=== PATIENT | male | born 1975 | race Caucasian/White ===

== ENCOUNTER 2020-04-10 04:48 | Observation (INO) ==
[2020-04-10] MEDS ORDERED: 0.9 % Sodium Chloride 1,000 ML IVC ONE (09:44)
[2020-04-10] MEDS ORDERED: D5% in 0.45% NACL 1,000 ML IVC PRN (09:58)
[2020-04-10] MEDS ORDERED: *HR* Dextrose 50 % in Water (Vial) 50 ML VIAL IVP PRN ×2 (09:58→15:47)
[2020-04-10] MEDS ORDERED: D5% in 0.45% NACL w KCl 20 MEQ/1,000 ML MLS IVC PRN (09:58)
[2020-04-10] MEDS ORDERED: Insulin Human Regular 100 UNIT in 0.9 % Sodium Chloride 100 ML IVC SCH ×3 (10:00→12:05)
[2020-04-10] MEDS: Ondansetron 4 MG/2 ML VIAL IVP PRN ×2 (10:35→20:12)
[2020-04-10] MEDS: Pantoprazole 40 MG VIAL IVP SCH (10:35)
[2020-04-10 10:53] LABS: Basophils % 0.2 %; Hematocrit 47.2 % (37.5-50.1); Hemoglobin 15.1 g/dL (12.9-16.9); Immature Granulocytes % 0.3 % (0-4); Lymphocytes # 1.6 K/mcL (0.6-4.6); Lymphocytes % 14.6 %; Mean Corpuscular Hemoglobin 25.8 pg (28.0-33.3); Mean Corpuscular Volume 80.7 fL (83.0-100.0); Mean Platelet Volume 10.3 fL (9.4-12.4); Monocytes # 1.2 K/mcL (0.0-1.3); Monocytes % 11.2 %; Neutrophils # 7.9 K/mcL (1.6-8.9); Platelet Count 287 K/mcL (140-400); Red Blood Count 5.85 M/mcL (4.19-5.50); Red Cell Distribution Width 13.4 % (11.5-14.5); Segmented Neutrophils % 73.7 %; White Blood Count 10.7 K/mcL (4.3-11.1)
[2020-04-10] MEDS: 0.45 % Sodium Chloride w/KCl 20 MEQ/1,000 ML MLS IVC SCH ×5 (11:14→15:18)
[2020-04-10 11:15] LABS: Estimated Average Glucose 358 mg/dl; Hemoglobin A1C 14.1 %
[2020-04-10 11:23] LABS: Troponin I < 0.03 ng/mL (< 0.04)
[2020-04-10 11:24] LABS: Alanine Aminotransferase 8 Units/L (7-52); Albumin 3.8 g/dL (3.5-5.7); Albumin/Globulin Ratio 1.1 (1.1-2.2); Alkaline Phosphatase 79 Units/L (34-104); Aspartate Amino Transferase 7 Units/L (13-39); BUN/Creatinine Ratio 29 (6-26); Bilirubin,Total 0.2 mg/dL (0.3-1.0); Blood Urea Nitrogen 36 mg/dL (6-20); Calcium 8.3 mg/dL (8.6-10.3); Carbon Dioxide 30 mEq/L (23-29); Chloride 104 mEq/L (98-107); Globulin 3.4 g/dL (2.4-3.5); Glucose 229 mg/dL (70-105); Lipase 10 Units/L (11-82); Magnesium 2.5 mg/dL (1.6-2.6); Osmolality,Calculated 318 (280-300); Potassium 3.2 mEq/L (3.5-5.1); Sodium 146 mEq/L (136-145); Total Protein 7.2 g/dL (6.4-8.9); eGFR For African Americans > 60 (> 60); eGFR For Non-African Americans > 60 (> 60)
[2020-04-10 15:30] LABS: BUN/Creatinine Ratio 28 (6-26); Blood Urea Nitrogen 31 mg/dL (6-20); Calcium 8.1 mg/dL (8.6-10.3); Carbon Dioxide 28 mEq/L (23-29); Chloride 106 mEq/L (98-107); Glucose 219 mg/dL (70-105); Osmolality,Calculated 311 (280-300); Potassium 3.7 mEq/L (3.5-5.1); Sodium 144 mEq/L (136-145); eGFR For African Americans > 60 (> 60); eGFR For Non-African Americans > 60 (> 60)
[2020-04-10] MEDS ORDERED: Insulin DETEMIR 100 UNIT/ML X5UNITS SQ ONE (15:47)
[2020-04-10] MEDS: 0.9 % Sodium Chloride 1,000 ML IVC SCH (16:26)
[2020-04-10] MEDS: Insulin LISPRO 300 UNITS/3 ML VIAL SQ SCH ×2 (16:47→20:09)
[2020-04-10] MEDS: *HR* Heparin 5,000 UNIT/ML VIAL SQ SCH (17:39)
[2020-04-10] MEDS: Insulin DETEMIR 100 UNIT/ML X5UNITS SQ SCH (20:12)
[2020-04-11] MEDS: 0.9 % Sodium Chloride 1,000 ML IVC SCH (01:58)
[2020-04-11] MEDS: Ondansetron 4 MG/2 ML VIAL IVP PRN ×3 (03:52→20:59)
[2020-04-11] MEDS: *HR* Heparin 5,000 UNIT/ML VIAL SQ SCH ×2 (05:30→18:05)
[2020-04-11] MEDS: Pantoprazole 40 MG VIAL IVP SCH (08:14)
[2020-04-11] MEDS: Insulin LISPRO 300 UNITS/3 ML VIAL SQ SCH ×4 (08:15→20:54)
[2020-04-11] MEDS: Insulin DETEMIR 100 UNIT/ML X5UNITS SQ SCH ×2 (08:16→21:00)
[2020-04-11 08:19] LABS: BUN/Creatinine Ratio 19 (6-26); Blood Urea Nitrogen 16 mg/dL (6-20); Calcium 7.9 mg/dL (8.6-10.3); Carbon Dioxide 26 mEq/L (23-29); Chloride 110 mEq/L (98-107); Glucose 192 mg/dL (70-105); Osmolality,Calculated 306 (280-300); Potassium 3.8 mEq/L (3.5-5.1); Sodium 145 mEq/L (136-145); eGFR For African Americans > 60 (> 60); eGFR For Non-African Americans > 60 (> 60)
[2020-04-11 09:19] LABS: Amphetamine Screen,Urine Negative ng/mL (Cutoff=1000); Barbiturate Screen,Urine Negative ng/mL (Cutoff=200); Benzodiazepines Screen,Urine Negative ng/mL (Cutoff=200); Cannabinoid Screen,Urine Negative ng/mL (Cutoff = 50); Cocaine Screen,Urine Negative ng/mL (Cutoff= 300); Opiate Screen,Urine Negative ng/mL (Cutoff=300); Phencyclidine Screen,Urine Negative ng/mL (Cutoff=25)
[2020-04-11] MEDS ORDERED: Potassium Phosphate 44 MEQ in 0.9 % Sodium Chloride 250 ML IVPB ONE (10:33)
[2020-04-12] MEDS: *HR* Heparin 5,000 UNIT/ML VIAL SQ SCH ×2 (04:58→16:46)
[2020-04-12] MEDS: Insulin DETEMIR 100 UNIT/ML X5UNITS SQ SCH (09:00)
[2020-04-12] MEDS: Pantoprazole 40 MG VIAL IVP SCH (09:01)
[2020-04-12] MEDS: Insulin LISPRO 300 UNITS/3 ML VIAL SQ SCH ×3 (09:01→16:46)
[2020-04-12 15:23] VITALS: BP 137/79
== END 2020-04-12 19:41 | disposition home or self-care (01) ==
LOC: 2NNU → SUATTDRO 09:04 → 3ANU 04-12 06:25
PROVIDERS: ADMIT Internal Medicine; ATTEND Internal Medicine

== ENCOUNTER 2020-05-02 00:17 | Observation (INO) ==
[2020-05-02] MEDS ORDERED: Naloxone 0.4 MG/ML INJ IVP PRN (02:14)
[2020-05-02] MEDS ORDERED: 0.9 % Sodium Chloride 1,000 ML IVC SCH (02:15)
[2020-05-02] MEDS ORDERED: D5% in Water 1,000 ML IVC PRN (02:19)
[2020-05-02] MEDS ORDERED: *HR* Dextrose 50 % in Water (Vial) 50 ML VIAL IVP PRN (02:19)
[2020-05-02] MEDS ORDERED: Dextrose Gel 15 GM/37.5 ML TUBE PO PRN ×2 (02:19)
[2020-05-02] MEDS: Insulin LISPRO 300 UNITS/3 ML VIAL SQ SCH ×5 (02:39→20:43)
[2020-05-02 03:32] LABS: Basophils % 0.1 %; Eosinophils % 0.1 %; Hematocrit 39.5 % (37.5-50.1); Hemoglobin 12.3 g/dL (12.9-16.9); INR 1.3; Immature Granulocytes % 0.2 % (0-4); Lymphocytes # 2.3 K/mcL (0.6-4.6); Lymphocytes % 27.8 %; Mean Corpuscular HGB Conc 31.1 g/dL (31.6-35.5); Mean Corpuscular Hemoglobin 25.5 pg (28.0-33.3); Mean Platelet Volume 9.7 fL (9.4-12.4); Monocytes # 0.7 K/mcL (0.0-1.3); Neutrophils # 5.1 K/mcL (1.6-8.9); Platelet Count 315 K/mcL (140-400); Prothrombin Time 14.9 Seconds (9.4-12.1); Red Blood Count 4.82 M/mcL (4.19-5.50); Red Cell Distribution Width 13.5 % (11.5-14.5); Segmented Neutrophils % 62.8 %; White Blood Count 8.2 K/mcL (4.3-11.1)
[2020-05-02 03:35] LABS: Activated Partial Thrombo Time 30.2 Seconds (26.0-36.0)
[2020-05-02 03:45] LABS: VBG Base Excess 6 mEq/L; VBG Chloride 111 mEq/L (98-107); VBG HCO3 31 mEq/L (21-27); VBG Ionized Calcium 1.05 mmol/L (1.15-1.35); VBG Oxygen Saturation 98 %; VBG PCO2 46 mmHg (41-51); VBG PH 7.44 pH Units (7.32-7.42); VBG PO2 102 mmHg (25-50); VBG Total CO2 32 mEq/L
[2020-05-02 03:55] LABS: Alanine Aminotransferase 8 Units/L (7-52); Albumin 3.4 g/dL (3.5-5.7); Albumin/Globulin Ratio 1.2 (1.1-2.2); Alkaline Phosphatase 55 Units/L (34-104); Aspartate Amino Transferase 7 Units/L (13-39); BUN/Creatinine Ratio 30 (6-26); Bilirubin,Total 0.2 mg/dL (0.3-1.0); Blood Urea Nitrogen 22 mg/dL (6-20); Calcium 8.3 mg/dL (8.6-10.3); Carbon Dioxide 29 mEq/L (23-29); Chloride 110 mEq/L (98-107); Globulin 2.9 g/dL (2.4-3.5); Glucose 134 mg/dL (70-105); Magnesium 1.8 mg/dL (1.6-2.6); Osmolality,Calculated 313 (280-300); Phosphorous 2.7 mg/dL (2.7-4.5); Potassium 3.3 mEq/L (3.5-5.1); Sodium 149 mEq/L (136-145); Total Protein 6.3 g/dL (6.4-8.9); eGFR For African Americans > 60 (> 60); eGFR For Non-African Americans > 60 (> 60)
[2020-05-02] MEDS ORDERED: Potassium Chloride 40 MEQ in D5% in 0.45% NACL 1,000 ML IVC SCH (04:30)
[2020-05-02 04:32] LABS: Procalcitonin < 0.02 ng/mL (0.00-0.15)
[2020-05-02 07:15] LABS: BUN/Creatinine Ratio 31 (6-26); Blood Urea Nitrogen 22 mg/dL (6-20); Calcium 8.1 mg/dL (8.6-10.3); Carbon Dioxide 32 mEq/L (23-29); Chloride 110 mEq/L (98-107); Glucose 135 mg/dL (70-105); Osmolality,Calculated 311 (280-300); Potassium 3.3 mEq/L (3.5-5.1); Sodium 148 mEq/L (136-145); eGFR For African Americans > 60 (> 60); eGFR For Non-African Americans > 60 (> 60)
[2020-05-02 07:43] LABS: HIV-1&2 Antibody & p24 Ag Nonreactive (Nonreactive)
[2020-05-02] MEDS ORDERED: D5% in Water 1,000 ML IVC SCH (07:45)
[2020-05-02] MEDS ORDERED: Insulin LISPRO 300 UNITS/3 ML VIAL SQ SCH (08:00)
[2020-05-02 08:05] LABS: Estimated Average Glucose 324 mg/dl
[2020-05-02] MEDS: Pantoprazole 40 MG VIAL IVP SCH (08:31)
[2020-05-02] MEDS: Ondansetron 4 MG/2 ML VIAL IVP PRN ×2 (08:38→20:32)
[2020-05-02 11:54] LABS: BUN/Creatinine Ratio 29 (6-26); Blood Urea Nitrogen 19 mg/dL (6-20); Calcium 7.7 mg/dL (8.6-10.3); Carbon Dioxide 26 mEq/L (23-29); Chloride 109 mEq/L (98-107); Glucose 211 mg/dL (70-105); Osmolality,Calculated 305 (280-300); Potassium 3.8 mEq/L (3.5-5.1); Sodium 143 mEq/L (136-145); eGFR For African Americans > 60 (> 60); eGFR For Non-African Americans > 60 (> 60)
[2020-05-02] MEDS: *HR* Heparin 5,000 UNIT/ML VIAL SQ SCH ×2 (14:32→20:26)
[2020-05-02 14:33] LABS: BUN/Creatinine Ratio 25 (6-26); Blood Urea Nitrogen 17 mg/dL (6-20); Calcium 7.7 mg/dL (8.6-10.3); Carbon Dioxide 27 mEq/L (23-29); Chloride 105 mEq/L (98-107); Glucose 285 mg/dL (70-105); Osmolality,Calculated 298 (280-300); Potassium 3.7 mEq/L (3.5-5.1); Sodium 138 mEq/L (136-145); eGFR For African Americans > 60 (> 60); eGFR For Non-African Americans > 60 (> 60)
[2020-05-02] MEDS: Magic Mouthwash 10 ML UD Cup PO SCH (17:19)
[2020-05-02] MEDS: Sucralfate 1 GM TABLET PO SCH (17:19)
[2020-05-02 18:39] LABS: BUN/Creatinine Ratio 19 (6-26); Blood Urea Nitrogen 14 mg/dL (6-20); Calcium 7.6 mg/dL (8.6-10.3); Carbon Dioxide 27 mEq/L (23-29); Chloride 102 mEq/L (98-107); Glucose 243 mg/dL (70-105); Osmolality,Calculated 293 (280-300); Potassium 3.8 mEq/L (3.5-5.1); Sodium 137 mEq/L (136-145); eGFR For African Americans > 60 (> 60); eGFR For Non-African Americans > 60 (> 60)
[2020-05-02] MEDS: Insulin DETEMIR 100 UNIT/ML X5UNITS SQ SCH (20:26)
[2020-05-02 23:24] LABS: BUN/Creatinine Ratio 15 (6-26); Blood Urea Nitrogen 11 mg/dL (6-20); Calcium 7.5 mg/dL (8.6-10.3); Carbon Dioxide 25 mEq/L (23-29); Chloride 103 mEq/L (98-107); Glucose 212 mg/dL (70-105); Osmolality,Calculated 286 (280-300); Potassium 3.6 mEq/L (3.5-5.1); Sodium 135 mEq/L (136-145); eGFR For African Americans > 60 (> 60); eGFR For Non-African Americans > 60 (> 60)
[2020-05-03] MEDS: Insulin LISPRO 300 UNITS/3 ML VIAL SQ SCH ×7 (00:08→20:43)
[2020-05-03 03:23] LABS: Basophils % 0.5 %; Eosinophils # 0.1 K/mcL (0.0-0.6); Eosinophils % 1.2 %; Hematocrit 33.9 % (37.5-50.1); Hemoglobin 10.8 g/dL (12.9-16.9); Immature Granulocytes % 0.2 % (0-4); Lymphocytes # 2.9 K/mcL (0.6-4.6); Lymphocytes % 44.2 %; Mean Corpuscular HGB Conc 31.9 g/dL (31.6-35.5); Mean Corpuscular Hemoglobin 26.2 pg (28.0-33.3); Mean Corpuscular Volume 82.3 fL (83.0-100.0); Mean Platelet Volume 9.5 fL (9.4-12.4); Monocytes # 0.5 K/mcL (0.0-1.3); Monocytes % 7.3 %; Neutrophils # 3.1 K/mcL (1.6-8.9); Platelet Count 215 K/mcL (140-400); Red Blood Count 4.12 M/mcL (4.19-5.50); Red Cell Distribution Width 13.3 % (11.5-14.5); Segmented Neutrophils % 46.6 %; White Blood Count 6.6 K/mcL (4.3-11.1)
[2020-05-03 03:38] LABS: BUN/Creatinine Ratio 13 (6-26); Blood Urea Nitrogen 10 mg/dL (6-20); Calcium 7.8 mg/dL (8.6-10.3); Carbon Dioxide 29 mEq/L (23-29); Chloride 103 mEq/L (98-107); Glucose 222 mg/dL (70-105); Magnesium 1.7 mg/dL (1.6-2.6); Osmolality,Calculated 288 (280-300); Potassium 3.4 mEq/L (3.5-5.1); Sodium 136 mEq/L (136-145); eGFR For African Americans > 60 (> 60); eGFR For Non-African Americans > 60 (> 60)
[2020-05-03] MEDS: *HR* Heparin 5,000 UNIT/ML VIAL SQ SCH ×3 (05:12→20:42)
[2020-05-03] MEDS: Sucralfate 1 GM TABLET PO SCH ×3 (08:02→17:04)
[2020-05-03] MEDS: Pantoprazole 40 MG VIAL IVP SCH (08:03)
[2020-05-03] MEDS: Magic Mouthwash 10 ML UD Cup PO SCH ×3 (08:03→17:04)
[2020-05-03] MEDS ORDERED: *HR* Succinylcholine 200 MG/10 ML VIAL IVP ONE (08:59)
[2020-05-03] MEDS ORDERED: Lidocaine -MPF 2% 2 ML VIAL ONE (08:59)
[2020-05-03] MEDS ORDERED: *HR* Propofol 200 MG/20 ML VIAL IVP ONE ×2 (09:00→11:01)
[2020-05-03 09:31] LABS: Hematocrit 37.5 % (37.5-50.1); Hemoglobin 11.6 g/dL (12.9-16.9)
[2020-05-03 10:17] LABS: Triiodothyronine (T3) Free 3.05 pg/mL (2.50-3.90)
[2020-05-03] MEDS: Fluconazole 400 MG/200 ML 400 MG/200 ML BAG IVPB SCH (11:58)
[2020-05-03 14:06] LABS: Hematocrit 35.1 % (37.5-50.1)
[2020-05-03] MEDS: Insulin DETEMIR 100 UNIT/ML X5UNITS SQ SCH (20:43)
[2020-05-04 06:04] LABS: Basophils % 0.4 %; Eosinophils # 0.1 K/mcL (0.0-0.6); Eosinophils % 1.1 %; Hematocrit 33.7 % (37.5-50.1); Hemoglobin 10.7 g/dL (12.9-16.9); Immature Granulocytes % 0.2 % (0-4); Mean Corpuscular HGB Conc 31.8 g/dL (31.6-35.5); Mean Corpuscular Hemoglobin 25.1 pg (28.0-33.3); Mean Corpuscular Volume 78.9 fL (83.0-100.0); Mean Platelet Volume 9.3 fL (9.4-12.4); Monocytes # 0.4 K/mcL (0.0-1.3); Monocytes % 8.7 %; Neutrophils # 2.2 K/mcL (1.6-8.9); Platelet Count 215 K/mcL (140-400); Red Blood Count 4.27 M/mcL (4.19-5.50); Red Cell Distribution Width 13.2 % (11.5-14.5); Segmented Neutrophils % 46.6 %; White Blood Count 4.7 K/mcL (4.3-11.1)
[2020-05-04] MEDS: *HR* Heparin 5,000 UNIT/ML VIAL SQ SCH (06:10)
[2020-05-04 06:24] LABS: BUN/Creatinine Ratio 12 (6-26); Blood Urea Nitrogen 10 mg/dL (6-20); Calcium 8.5 mg/dL (8.6-10.3); Carbon Dioxide 27 mEq/L (23-29); Chloride 105 mEq/L (98-107); Glucose 211 mg/dL (70-105); Magnesium 1.8 mg/dL (1.6-2.6); Osmolality,Calculated 291 (280-300); Potassium 3.6 mEq/L (3.5-5.1); Sodium 138 mEq/L (136-145); eGFR For African Americans > 60 (> 60); eGFR For Non-African Americans > 60 (> 60)
[2020-05-04 06:41] VITALS: BP 165/93
[2020-05-04] MEDS: Sucralfate 1 GM TABLET PO SCH (07:32)
[2020-05-04] MEDS: Fluconazole 400 MG/200 ML 400 MG/200 ML BAG IVPB SCH (07:32)
[2020-05-04] MEDS: Pantoprazole 40 MG VIAL IVP SCH (07:33)
[2020-05-04] MEDS: Insulin LISPRO 300 UNITS/3 ML VIAL SQ SCH (07:47)
== END 2020-05-04 11:10 | disposition home or self-care (01) ==
LOC: 2ANU → SUATTDRO 02:07
PROVIDERS: ADMIT Student in an Organized Health Care Education/Training Program; ATTEND Pharmacist
PROC: ENDOEBX (2020-05-03 17:30)

== ENCOUNTER 2020-05-16 21:06 | Inpatient (IN) ==
[2020-05-16] MEDS ORDERED: Insulin Human Regular 100 UNIT in 0.9 % Sodium Chloride 100 ML IVC SCH (23:45)
[2020-05-16] MEDS ORDERED: Naloxone 0.4 MG/ML INJ IVP PRN (23:53)
[2020-05-16] MEDS ORDERED: *HR* Dextrose 50 % in Water (Vial) 50 ML VIAL IVP PRN (23:56)
[2020-05-16] MEDS ORDERED: D5% in 0.45% NACL w KCl 20 MEQ/1,000 ML MLS IVC PRN (23:56)
[2020-05-16] MEDS ORDERED: D5% in 0.45% NACL 1,000 ML IVC PRN (23:56)
[2020-05-17] MEDS: Ondansetron 4 MG/2 ML VIAL IVP PRN ×2 (00:19→12:06)
[2020-05-17] MEDS: 0.45 % Sodium Chloride w/KCl 20 MEQ/1,000 ML MLS IVC SCH ×5 (00:20→18:01)
[2020-05-17] MEDS ORDERED: Isovue-370 500 ML BOTTLE IVP ONE (00:30)
[2020-05-17 01:29] LABS: Adenovirus Not Detected (Not Detect); Coronavirus 229E Not Detected (Not Detect); Coronavirus HKU1 Not Detected (Not Detect); Coronavirus NL63 Not Detected (Not Detect); Coronavirus OC43 Not Detected (Not Detect)
[2020-05-17 01:31] LABS: Bordetella Pertussis Not Detected (Not Detect); Chlamydophila pneumoniae Not Detected (Not Detect); Human Metapneumovirus Not Detected (Not Detect); Human Rhinovirus/Enterovirus Not Detected (Not Detect); Influenza A Subtype 2009 H1 Not Detected (Not Detect); Influenza B Not Detected (Not Detect); Mycoplasma pneumoniae Not Detected (Not Detect); Parainfluenza Virus 1 Not Detected (Not Detect); Parainfluenza Virus 2 Not Detected (Not Detect); Parainfluenza Virus 3 Not Detected (Not Detect); Parainfluenza Virus 4 Not Detected (Not Detect); Respiratory Syncytial Virus Not Detected (Not Detect)
[2020-05-17] MEDS: *HR* Enoxaparin 40 MG/0.4 ML SYRINGE SQ SCH (04:44)
[2020-05-17 05:03] LABS: BUN/Creatinine Ratio 30 (6-26); Blood Urea Nitrogen 31 mg/dL (6-20); C-Reactive Protein 215 mg/L (Less than 10); Calcium 8.7 mg/dL (8.6-10.3); Carbon Dioxide 25 mEq/L (23-29); Chloride 100 mEq/L (98-107); Glucose 158 mg/dL (70-105); Magnesium 2.2 mg/dL (1.6-2.6); Osmolality,Calculated 302 (280-300); Phosphorous 2.3 mg/dL (2.7-4.5); Potassium 3.9 mEq/L (3.5-5.1); Sodium 141 mEq/L (136-145); eGFR For African Americans > 60 (> 60); eGFR For Non-African Americans > 60 (> 60)
[2020-05-17 05:03] LABS: Basophils % 0.2 %; Eosinophils % 0.1 %; Hematocrit 43.6 % (37.5-50.1); Hemoglobin 13.7 g/dL (12.9-16.9); Immature Granulocytes % 0.4 % (0-4); Lymphocytes # 2.6 K/mcL (0.6-4.6); Lymphocytes % 17.2 %; Mean Corpuscular HGB Conc 31.4 g/dL (31.6-35.5); Mean Corpuscular Hemoglobin 25.2 pg (28.0-33.3); Mean Corpuscular Volume 80.3 fL (83.0-100.0); Mean Platelet Volume 9.7 fL (9.4-12.4); Monocytes # 1.1 K/mcL (0.0-1.3); Monocytes % 7.6 %; Neutrophils # 11.2 K/mcL (1.6-8.9); Platelet Count 321 K/mcL (140-400); Red Blood Count 5.43 M/mcL (4.19-5.50); Segmented Neutrophils % 74.5 %; White Blood Count 15.1 K/mcL (4.3-11.1)
[2020-05-17 05:04] LABS: VBG HCO3 28 mEq/L (21-27); VBG PCO2 41 mmHg (41-51); VBG PH 7.44 pH Units (7.32-7.42); VBG PO2 181 mmHg (25-50)
[2020-05-17] MEDS ORDERED: Insulin DETEMIR 100 UNIT/ML X5UNITS SQ ONE (07:42)
[2020-05-17 08:38] LABS: INR 1.3; Prothrombin Time 14.4 Seconds (9.4-12.1)
[2020-05-17 08:48] LABS: BUN/Creatinine Ratio 29 (6-26); Blood Urea Nitrogen 29 mg/dL (6-20); Calcium 8.4 mg/dL (8.6-10.3); Carbon Dioxide 30 mEq/L (23-29); Chloride 101 mEq/L (98-107); Glucose 112 mg/dL (70-105); Osmolality,Calculated 293 (280-300); Potassium 3.6 mEq/L (3.5-5.1); Sodium 138 mEq/L (136-145); eGFR For African Americans > 60 (> 60); eGFR For Non-African Americans > 60 (> 60)
[2020-05-17] MEDS ORDERED: Dextrose Gel 15 GM/37.5 ML TUBE PO PRN ×2 (11:57)
[2020-05-17] MEDS ORDERED: D5% in Water 1,000 ML IVC PRN (11:57)
[2020-05-17] MEDS ORDERED: Insulin LISPRO 300 UNITS/3 ML VIAL SQ SCH ×2 (12:00→21:00)
[2020-05-17] MEDS: Pantoprazole 40 MG VIAL IVP SCH ×2 (12:44→17:22)
[2020-05-17] MEDS: 0.9 % Sodium Chloride w KCl 40 MEQ/1,000 ML MLS IVC SCH (12:44)
[2020-05-17] MEDS ORDERED: Lidocaine -MPF 2% 2 ML VIAL ONE (13:46)
[2020-05-17] MEDS: Sucralfate 1 GM TABLET PO SCH ×2 (15:42→20:25)
[2020-05-17] MEDS: Fluconazole 400 MG/200 ML 400 MG/200 ML BAG IVPB SCH (15:42)
[2020-05-17] MEDS: Insulin LISPRO 300 UNITS/3 ML VIAL SQ SCH (17:22)
[2020-05-18 02:25] LABS: Basophils % 0.3 %; Eosinophils # 0.1 K/mcL (0.0-0.6); Eosinophils % 0.6 %; Hematocrit 37.4 % (37.5-50.1); Immature Granulocytes % 0.3 % (0-4); Lymphocytes # 2.8 K/mcL (0.6-4.6); Lymphocytes % 27.9 %; Mean Corpuscular HGB Conc 32.1 g/dL (31.6-35.5); Mean Corpuscular Hemoglobin 26.3 pg (28.0-33.3); Mean Corpuscular Volume 81.8 fL (83.0-100.0); Mean Platelet Volume 9.6 fL (9.4-12.4); Monocytes # 0.7 K/mcL (0.0-1.3); Monocytes % 7.4 %; Neutrophils # 6.3 K/mcL (1.6-8.9); Platelet Count 267 K/mcL (140-400); Red Blood Count 4.57 M/mcL (4.19-5.50); Red Cell Distribution Width 13.9 % (11.5-14.5); Segmented Neutrophils % 63.5 %; White Blood Count 9.9 K/mcL (4.3-11.1)
[2020-05-18 02:43] LABS: BUN/Creatinine Ratio 18 (6-26); Blood Urea Nitrogen 16 mg/dL (6-20); Calcium 8.6 mg/dL (8.6-10.3); Carbon Dioxide 26 mEq/L (23-29); Chloride 100 mEq/L (98-107); Glucose 211 mg/dL (70-105); Magnesium 1.9 mg/dL (1.6-2.6); Osmolality,Calculated 285 (280-300); Potassium 3.9 mEq/L (3.5-5.1); Sodium 134 mEq/L (136-145); eGFR For African Americans > 60 (> 60); eGFR For Non-African Americans > 60 (> 60)
[2020-05-18] MEDS: 0.9 % Sodium Chloride w KCl 40 MEQ/1,000 ML MLS IVC SCH (05:24)
[2020-05-18] MEDS: Pantoprazole 40 MG VIAL IVP SCH ×2 (05:30→17:32)
[2020-05-18] MEDS: *HR* Enoxaparin 40 MG/0.4 ML SYRINGE SQ SCH (05:30)
[2020-05-18] MEDS: Sucralfate 1 GM TABLET PO SCH ×4 (07:40→21:39)
[2020-05-18] MEDS: Fluconazole 400 MG/200 ML 400 MG/200 ML BAG IVPB SCH (07:40)
[2020-05-18] MEDS: Insulin LISPRO 300 UNITS/3 ML VIAL SQ SCH ×3 (07:40→16:30)
[2020-05-18] MEDS: Insulin DETEMIR 100 UNIT/ML X5UNITS SQ SCH (22:28)
[2020-05-19 02:09] LABS: Basophils % 0.5 %; Eosinophils # 0.1 K/mcL (0.0-0.6); Eosinophils % 0.9 %; Hematocrit 34.5 % (37.5-50.1); Hemoglobin 11.1 g/dL (12.9-16.9); Lymphocytes # 2.2 K/mcL (0.6-4.6); Lymphocytes % 38.5 %; Mean Corpuscular HGB Conc 32.2 g/dL (31.6-35.5); Mean Corpuscular Hemoglobin 25.8 pg (28.0-33.3); Mean Platelet Volume 10.1 fL (9.4-12.4); Monocytes # 0.5 K/mcL (0.0-1.3); Monocytes % 8.4 %; Platelet Count 234 K/mcL (140-400); Red Blood Count 4.31 M/mcL (4.19-5.50); Red Cell Distribution Width 13.4 % (11.5-14.5); Segmented Neutrophils % 51.7 %; White Blood Count 5.8 K/mcL (4.3-11.1)
[2020-05-19 02:27] LABS: BUN/Creatinine Ratio 13 (6-26); Blood Urea Nitrogen 11 mg/dL (6-20); Calcium 8.3 mg/dL (8.6-10.3); Carbon Dioxide 26 mEq/L (23-29); Chloride 100 mEq/L (98-107); Glucose 270 mg/dL (70-105); Osmolality,Calculated 285 (280-300); Potassium 3.6 mEq/L (3.5-5.1); Sodium 133 mEq/L (136-145); eGFR For African Americans > 60 (> 60); eGFR For Non-African Americans > 60 (> 60)
[2020-05-19] MEDS: *HR* Enoxaparin 40 MG/0.4 ML SYRINGE SQ SCH (05:54)
[2020-05-19] MEDS: Pantoprazole 40 MG VIAL IVP SCH ×2 (05:54→17:00)
[2020-05-19] MEDS: Sucralfate 1 GM TABLET PO SCH ×4 (07:59→21:04)
[2020-05-19] MEDS: Fluconazole 400 MG/200 ML 400 MG/200 ML BAG IVPB SCH (07:59)
[2020-05-19] MEDS: Insulin LISPRO 300 UNITS/3 ML VIAL SQ SCH ×3 (08:00→17:00)
[2020-05-19] MEDS: Insulin DETEMIR 100 UNIT/ML X5UNITS SQ SCH (21:07)
[2020-05-20 02:57] LABS: Basophils % 0.6 %; Eosinophils # 0.1 K/mcL (0.0-0.6); Eosinophils % 1.5 %; Hematocrit 32.9 % (37.5-50.1); Hemoglobin 10.7 g/dL (12.9-16.9); Immature Granulocytes % 0.2 % (0-4); Lymphocytes # 2.4 K/mcL (0.6-4.6); Lymphocytes % 43.6 %; Mean Corpuscular HGB Conc 32.5 g/dL (31.6-35.5); Mean Corpuscular Hemoglobin 25.7 pg (28.0-33.3); Mean Corpuscular Volume 78.9 fL (83.0-100.0); Mean Platelet Volume 10.3 fL (9.4-12.4); Monocytes # 0.5 K/mcL (0.0-1.3); Monocytes % 8.9 %; Neutrophils # 2.4 K/mcL (1.6-8.9); Platelet Count 245 K/mcL (140-400); Red Blood Count 4.17 M/mcL (4.19-5.50); Red Cell Distribution Width 13.3 % (11.5-14.5); Segmented Neutrophils % 45.2 %; White Blood Count 5.4 K/mcL (4.3-11.1)
[2020-05-20 03:16] LABS: BUN/Creatinine Ratio 19 (6-26); Blood Urea Nitrogen 13 mg/dL (6-20); Calcium 8.7 mg/dL (8.6-10.3); Carbon Dioxide 26 mEq/L (23-29); Chloride 100 mEq/L (98-107); Glucose 305 mg/dL (70-105); Magnesium 1.6 mg/dL (1.6-2.6); Osmolality,Calculated 288 (280-300); Phosphorous 2.9 mg/dL (2.7-4.5); Potassium 3.7 mEq/L (3.5-5.1); Sodium 133 mEq/L (136-145); eGFR For African Americans > 60 (> 60); eGFR For Non-African Americans > 60 (> 60)
[2020-05-20] MEDS: Pantoprazole 40 MG VIAL IVP SCH (05:31)
[2020-05-20] MEDS: Fluconazole 400 MG/200 ML 400 MG/200 ML BAG IVPB SCH (10:36)
[2020-05-20] MEDS: Fluconazole 100 MG TABLET PO SCH (10:38)
[2020-05-20] MEDS: Insulin LISPRO 300 UNITS/3 ML VIAL SQ SCH ×3 (10:39→17:39)
[2020-05-20] MEDS: Sucralfate 1 GM TABLET PO SCH ×4 (10:39→22:24)
[2020-05-20] MEDS ORDERED: Insulin DETEMIR 100 UNIT/ML X5UNITS SQ SCH (21:00)
[2020-05-21 02:00] LABS: Basophils % 0.6 %; Eosinophils # 0.1 K/mcL (0.0-0.6); Eosinophils % 1.9 %; Hematocrit 34.1 % (37.5-50.1); Hemoglobin 10.9 g/dL (12.9-16.9); Immature Granulocytes % 0.2 % (0-4); Lymphocytes # 2.3 K/mcL (0.6-4.6); Lymphocytes % 44.7 %; Mean Corpuscular Hemoglobin 24.9 pg (28.0-33.3); Mean Platelet Volume 9.7 fL (9.4-12.4); Monocytes # 0.5 K/mcL (0.0-1.3); Monocytes % 8.8 %; Neutrophils # 2.3 K/mcL (1.6-8.9); Platelet Count 257 K/mcL (140-400); Red Blood Count 4.37 M/mcL (4.19-5.50); Red Cell Distribution Width 13.2 % (11.5-14.5); Segmented Neutrophils % 43.8 %; White Blood Count 5.2 K/mcL (4.3-11.1)
[2020-05-21 02:18] LABS: BUN/Creatinine Ratio 22 (6-26); Blood Urea Nitrogen 14 mg/dL (6-20); Calcium 9.1 mg/dL (8.6-10.3); Carbon Dioxide 24 mEq/L (23-29); Chloride 98 mEq/L (98-107); Glucose 339 mg/dL (70-105); Magnesium 1.6 mg/dL (1.6-2.6); Osmolality,Calculated 288 (280-300); Phosphorous 3.6 mg/dL (2.7-4.5); Potassium 3.8 mEq/L (3.5-5.1); Sodium 132 mEq/L (136-145); eGFR For African Americans > 60 (> 60); eGFR For Non-African Americans > 60 (> 60)
[2020-05-21] MEDS: Sucralfate 1 GM TABLET PO SCH ×2 (08:16→11:15)
[2020-05-21] MEDS: Fluconazole 100 MG TABLET PO SCH (08:17)
[2020-05-21] MEDS: Insulin LISPRO 300 UNITS/3 ML VIAL SQ SCH ×2 (08:21→11:19)
[2020-05-21 14:35] VITALS: BP 166/100
== END 2020-05-21 15:53 | disposition home or self-care (01) | DRG 380 ==
LOC: 2NNU → SUATTDRO 23:16 → 3ANU 05-18 17:46
PROVIDERS: ADMIT Internal Medicine; ATTEND Internal Medicine

== ENCOUNTER 2020-07-04 19:54 | Inpatient (IN) ==
[2020-07-04] MEDS ORDERED: Naloxone 0.4 MG/ML INJ IVP PRN (21:28)
[2020-07-04 22:52] LABS: ABG Base Excess -5 mEq/L (-2 to 3); ABG HCO3 19 mEq/L (21-27); ABG Oxygen Saturation 97 % (95-98); ABG PCO2 31 mmHg (35-45); ABG PH 7.39 pH Units (7.32-7.45); ABG PO2 94 mmHg (85-104); ABG TCO2 20 mEq/L (20-26)
[2020-07-04 23:03] LABS: Basophils % 0.1 %; Hematocrit 43.9 % (37.5-50.1); Hemoglobin 14.3 g/dL (12.9-16.9); Immature Granulocytes % 0.3 % (0-4); Lymphocytes # 1.8 K/mcL (0.6-4.6); Lymphocytes % 12.7 %; Mean Corpuscular HGB Conc 32.6 g/dL (31.6-35.5); Mean Corpuscular Hemoglobin 24.8 pg (28.0-33.3); Mean Corpuscular Volume 76.2 fL (83.0-100.0); Mean Platelet Volume 10.2 fL (9.4-12.4); Monocytes # 0.9 K/mcL (0.0-1.3); Monocytes % 6.5 %; Neutrophils # 11.6 K/mcL (1.6-8.9); Platelet Count 314 K/mcL (140-400); Red Blood Count 5.76 M/mcL (4.19-5.50); Red Cell Distribution Width 14.6 % (11.5-14.5); Segmented Neutrophils % 80.4 %; White Blood Count 14.5 K/mcL (4.3-11.1)
[2020-07-04] MEDS ORDERED: *HR* Dextrose 50 % in Water (Vial) 50 ML VIAL IVP PRN (23:12)
[2020-07-04] MEDS ORDERED: Insulin Regular, Human 100 UNIT/ML IV PRN ×2 (23:12)
[2020-07-04] MEDS ORDERED: D5% in 0.45% NACL 1,000 ML IVC PRN (23:12)
[2020-07-04] MEDS ORDERED: 0.9 % Sodium Chloride 1,000 ML IVC PRN ×2 (23:15)
[2020-07-04] MEDS ORDERED: Insulin Human Regular 100 UNIT in 0.9 % Sodium Chloride 100 ML IVC SCH (23:15)
[2020-07-04 23:19] LABS: Alanine Aminotransferase 11 Units/L (7-52); Albumin 3.8 g/dL (3.5-5.7); Albumin/Globulin Ratio 1.2 (1.1-2.2); Alkaline Phosphatase 74 Units/L (34-104); Aspartate Amino Transferase 8 Units/L (13-39); BUN/Creatinine Ratio 31 (6-26); Bilirubin,Total 0.4 mg/dL (0.3-1.0); Blood Urea Nitrogen 32 mg/dL (6-20); Carbon Dioxide 16 mEq/L (23-29); Chloride 98 mEq/L (98-107); Globulin 3.2 g/dL (2.4-3.5); Glucose 352 mg/dL (70-105); Magnesium 1.9 mg/dL (1.6-2.6); Osmolality,Calculated 313 (280-300); Phosphorous 4.2 mg/dL (2.7-4.5); Potassium 3.8 mEq/L (3.5-5.1); Sodium 141 mEq/L (136-145); eGFR For African Americans > 60 (> 60); eGFR For Non-African Americans > 60 (> 60)
[2020-07-05] MEDS: 0.9 % Sodium Chloride w KCl 20 MEQ/1,000 ML MLS IVC SCH ×2 (00:28→02:46)
[2020-07-05] MEDS: Ondansetron 4 MG/2 ML VIAL IVP PRN ×2 (00:52→14:59)
[2020-07-05] MEDS: *HR* Heparin 5,000 UNIT/ML VIAL SQ SCH ×2 (04:20→18:13)
[2020-07-05] MEDS: *HR* Promethazine 25 MG/ML VIAL IVP PRN ×2 (04:20→20:35)
[2020-07-05] MEDS: D5% in 0.45% NACL w KCl 20 MEQ/1,000 ML MLS IVC PRN ×2 (04:30→09:21)
[2020-07-05 06:43] LABS: VBG HCO3 20 mEq/L (21-27); VBG PCO2 22 mmHg (41-51); VBG PH 7.56 pH Units (7.32-7.42); VBG PO2 246 mmHg (25-50)
[2020-07-05 06:49] LABS: Basophils % 0.1 %; Hematocrit 44.2 % (37.5-50.1); Hemoglobin 13.5 g/dL (12.9-16.9); Immature Granulocytes % 0.4 % (0-4); Lymphocytes # 1.7 K/mcL (0.6-4.6); Lymphocytes % 12.8 %; Mean Corpuscular HGB Conc 30.5 g/dL (31.6-35.5); Mean Corpuscular Hemoglobin 24.6 pg (28.0-33.3); Mean Corpuscular Volume 80.5 fL (83.0-100.0); Mean Platelet Volume 10.1 fL (9.4-12.4); Monocytes # 1.2 K/mcL (0.0-1.3); Monocytes % 8.7 %; Neutrophils # 10.6 K/mcL (1.6-8.9); Platelet Count 227 K/mcL (140-400); Red Blood Count 5.49 M/mcL (4.19-5.50); White Blood Count 13.6 K/mcL (4.3-11.1)
[2020-07-05 08:10] LABS: BUN/Creatinine Ratio 30 (6-26); Blood Urea Nitrogen 27 mg/dL (6-20); Calcium 8.5 mg/dL (8.6-10.3); Carbon Dioxide 19 mEq/L (23-29); Chloride 112 mEq/L (98-107); Glucose 226 mg/dL (70-105); Osmolality,Calculated 308 (280-300); Potassium 4.2 mEq/L (3.5-5.1); Sodium 143 mEq/L (136-145); eGFR For African Americans > 60 (> 60); eGFR For Non-African Americans > 60 (> 60)
[2020-07-05] MEDS: Fluconazole 400 MG/200 ML 400 MG/200 ML BAG IVPB SCH (10:00)
[2020-07-05] MEDS ORDERED: D5% in Water 1,000 ML IVC PRN (11:20)
[2020-07-05] MEDS ORDERED: *HR* Dextrose 50 % in Water (Vial) 50 ML VIAL IVP PRN (11:20)
[2020-07-05] MEDS ORDERED: Dextrose Gel 15 GM/37.5 ML TUBE PO PRN ×2 (11:20)
[2020-07-05 12:57] LABS: BUN/Creatinine Ratio 24 (6-26); Blood Urea Nitrogen 22 mg/dL (6-20); Carbon Dioxide 23 mEq/L (23-29); Chloride 114 mEq/L (98-107); Glucose 128 mg/dL (70-105); Osmolality,Calculated 297 (280-300); Potassium 4.4 mEq/L (3.5-5.1); Sodium 141 mEq/L (136-145); eGFR For African Americans > 60 (> 60); eGFR For Non-African Americans > 60 (> 60)
[2020-07-05] MEDS: Insulin DETEMIR 100 UNIT/ML X5UNITS SQ SCH (13:02)
[2020-07-05] MEDS: Insulin LISPRO 300 UNITS/3 ML VIAL SQ SCH ×3 (13:14→20:35)
[2020-07-05 16:54] LABS: BUN/Creatinine Ratio 24 (6-26); Blood Urea Nitrogen 20 mg/dL (6-20); Carbon Dioxide 23 mEq/L (23-29); Chloride 110 mEq/L (98-107); Glucose 194 mg/dL (70-105); Osmolality,Calculated 298 (280-300); Potassium 4.3 mEq/L (3.5-5.1); Sodium 140 mEq/L (136-145); eGFR For African Americans > 60 (> 60); eGFR For Non-African Americans > 60 (> 60)
[2020-07-05] MEDS ORDERED: Ringers Solution, Lactated 1,000 ML IVC SCH (18:00)
[2020-07-05] MEDS: Pantoprazole 40 MG VIAL IVP SCH (23:41)
[2020-07-06 01:00] LABS: Hematocrit 41.2 % (37.5-50.1); Hemoglobin 12.7 g/dL (12.9-16.9); Immature Granulocytes % 0.4 % (0-4); Lymphocytes % 18.5 %; Mean Corpuscular HGB Conc 30.8 g/dL (31.6-35.5); Mean Corpuscular Volume 81.3 fL (83.0-100.0); Monocytes % 9.8 %; Platelet Count 187 K/mcL (140-400); Red Blood Count 5.07 M/mcL (4.19-5.50); Red Cell Distribution Width 15.4 % (11.5-14.5)
[2020-07-06 01:01] LABS: Basophils % 0.2 %; Eosinophils % 0.1 %; Lymphocytes # 2.2 K/mcL (0.6-4.6); Monocytes # 1.2 K/mcL (0.0-1.3); Neutrophils # 8.5 K/mcL (1.6-8.9)
[2020-07-06 01:45] LABS: BUN/Creatinine Ratio 24 (6-26); Blood Urea Nitrogen 17 mg/dL (6-20); Calcium 7.8 mg/dL (8.6-10.3); Carbon Dioxide 17 mEq/L (23-29); Chloride 109 mEq/L (98-107); Glucose 190 mg/dL (70-105); Magnesium 1.7 mg/dL (1.6-2.6); Osmolality,Calculated 291 (280-300); Potassium 4.2 mEq/L (3.5-5.1); Sodium 137 mEq/L (136-145); eGFR For African Americans > 60 (> 60); eGFR For Non-African Americans > 60 (> 60)
[2020-07-06] MEDS: *HR* Heparin 5,000 UNIT/ML VIAL SQ SCH ×2 (05:51→17:54)
[2020-07-06] MEDS: Pantoprazole 40 MG VIAL IVP SCH ×2 (05:51→17:53)
[2020-07-06] MEDS: Insulin DETEMIR 100 UNIT/ML X5UNITS SQ SCH (07:42)
[2020-07-06] MEDS: Insulin LISPRO 300 UNITS/3 ML VIAL SQ SCH ×4 (07:43→20:53)
[2020-07-06] MEDS: Fluconazole 400 MG/200 ML 400 MG/200 ML BAG IVPB SCH (07:44)
[2020-07-06 18:16] LABS: Adenovirus Not Detected (Not Detect); Bordetella Pertussis Not Detected (Not Detect); Chlamydophila pneumoniae Not Detected (Not Detect); Coronavirus 229E Not Detected (Not Detect); Coronavirus HKU1 Not Detected (Not Detect); Coronavirus NL63 Not Detected (Not Detect); Coronavirus OC43 Not Detected (Not Detect); Human Metapneumovirus Not Detected (Not Detect); Human Rhinovirus/Enterovirus Not Detected (Not Detect); Influenza A Subtype 2009 H1 Not Detected (Not Detect); Influenza B Not Detected (Not Detect); Mycoplasma pneumoniae Not Detected (Not Detect); Parainfluenza Virus 1 Not Detected (Not Detect); Parainfluenza Virus 2 Not Detected (Not Detect); Parainfluenza Virus 3 Not Detected (Not Detect); Parainfluenza Virus 4 Not Detected (Not Detect); Respiratory Syncytial Virus Not Detected (Not Detect); SARS-CoV-2 Not Detected (Not Detect)
[2020-07-06] MEDS: Ondansetron 4 MG/2 ML VIAL IVP PRN (20:46)
[2020-07-07 05:16] LABS: Basophils % 0.6 %; Eosinophils % 0.4 %; Hematocrit 34.9 % (37.5-50.1); Hemoglobin 11.2 g/dL (12.9-16.9); Immature Granulocytes % 0.4 % (0-4); Lymphocytes # 2.1 K/mcL (0.6-4.6); Lymphocytes % 30.6 %; Mean Corpuscular HGB Conc 32.1 g/dL (31.6-35.5); Mean Corpuscular Hemoglobin 24.9 pg (28.0-33.3); Mean Corpuscular Volume 77.7 fL (83.0-100.0); Mean Platelet Volume 10.3 fL (9.4-12.4); Monocytes # 0.5 K/mcL (0.0-1.3); Monocytes % 7.2 %; Neutrophils # 4.2 K/mcL (1.6-8.9); Platelet Count 169 K/mcL (140-400); Red Blood Count 4.49 M/mcL (4.19-5.50); Red Cell Distribution Width 14.7 % (11.5-14.5); Segmented Neutrophils % 60.8 %
[2020-07-07] MEDS: Pantoprazole 40 MG VIAL IVP SCH ×2 (05:25→17:08)
[2020-07-07] MEDS: *HR* Heparin 5,000 UNIT/ML VIAL SQ SCH ×2 (05:25→17:06)
[2020-07-07 05:36] LABS: BUN/Creatinine Ratio 12 (6-26); Blood Urea Nitrogen 8 mg/dL (6-20); Calcium 8.5 mg/dL (8.6-10.3); Carbon Dioxide 25 mEq/L (23-29); Chloride 105 mEq/L (98-107); Glucose 169 mg/dL (70-105); Magnesium 1.7 mg/dL (1.6-2.6); Osmolality,Calculated 284 (280-300); Potassium 3.5 mEq/L (3.5-5.1); Sodium 136 mEq/L (136-145); eGFR For African Americans > 60 (> 60); eGFR For Non-African Americans > 60 (> 60)
[2020-07-07] MEDS: Fluconazole 400 MG/200 ML 400 MG/200 ML BAG IVPB SCH (07:40)
[2020-07-07] MEDS: Insulin LISPRO 300 UNITS/3 ML VIAL SQ SCH ×4 (07:50→21:40)
[2020-07-07] MEDS: 0.9 % Sodium Chloride 1,000 ML IVC SCH (07:53)
[2020-07-07] MEDS: 0.45 % Sodium Chloride w/KCl 20 MEQ/1,000 ML MLS IVC SCH ×3 (07:54→07:56)
[2020-07-07] MEDS: 0.9 % Sodium Chloride w KCl 20 MEQ/1,000 ML MLS IVC SCH (07:57)
[2020-07-07] MEDS: *HR* Promethazine 25 MG/ML VIAL IVP PRN (11:30)
[2020-07-07] MEDS ORDERED: *HR* Propofol 200 MG/20 ML VIAL IVP ONE ×2 (13:50→15:12)
[2020-07-07] MEDS ORDERED: Lidocaine -MPF 2% 2 ML VIAL ONE (13:50)
[2020-07-07] MEDS: Famotidine 20 MG TABLET PO SCH (21:39)
[2020-07-08 02:00] LABS: Basophils % 0.3 %; Eosinophils % 0.7 %; Hematocrit 32.9 % (37.5-50.1); Hemoglobin 10.3 g/dL (12.9-16.9); Immature Granulocytes % 0.2 % (0-4); Lymphocytes # 2.2 K/mcL (0.6-4.6); Lymphocytes % 37.4 %; Mean Corpuscular HGB Conc 31.3 g/dL (31.6-35.5); Mean Corpuscular Volume 79.9 fL (83.0-100.0); Mean Platelet Volume 9.8 fL (9.4-12.4); Monocytes # 0.5 K/mcL (0.0-1.3); Monocytes % 8.1 %; Neutrophils # 3.1 K/mcL (1.6-8.9); Platelet Count 160 K/mcL (140-400); Red Blood Count 4.12 M/mcL (4.19-5.50); Red Cell Distribution Width 14.7 % (11.5-14.5); Segmented Neutrophils % 53.3 %; White Blood Count 5.9 K/mcL (4.3-11.1)
[2020-07-08 02:15] LABS: BUN/Creatinine Ratio 11 (6-26); Blood Urea Nitrogen 7 mg/dL (6-20); Carbon Dioxide 25 mEq/L (23-29); Chloride 107 mEq/L (98-107); Glucose 164 mg/dL (70-105); Osmolality,Calculated 288 (280-300); Potassium 3.6 mEq/L (3.5-5.1); Sodium 138 mEq/L (136-145); eGFR For African Americans > 60 (> 60); eGFR For Non-African Americans > 60 (> 60)
[2020-07-08] MEDS: Pantoprazole 40 MG VIAL IVP SCH ×2 (05:51→17:15)
[2020-07-08] MEDS: *HR* Heparin 5,000 UNIT/ML VIAL SQ SCH ×2 (05:52→16:55)
[2020-07-08] MEDS: Insulin LISPRO 300 UNITS/3 ML VIAL SQ SCH ×4 (08:45→22:06)
[2020-07-08] MEDS: Fluconazole 400 MG/200 ML 400 MG/200 ML BAG IVPB SCH (08:45)
[2020-07-08] MEDS ORDERED: Simethicone/Sodium Bic/Citr Ac 1 EACH GRAN.EF.PK PO ONE (14:01)
[2020-07-08] MEDS ORDERED: Barium Sulfate 1 TAB TABLET PO ONE (14:01)
[2020-07-08] MEDS ORDERED: E-Z-PAQUE (BARIUM SULF) SUSP 1 BOTTLE PO ONE (14:01)
[2020-07-08] MEDS ORDERED: E-Z-HD (BARIUM SULF) SUSPENSION PO ONE (14:01)
[2020-07-08] MEDS: *HR* Labetalol 20 MG/4 ML SYRINGE IVP PRN (15:08)
[2020-07-08] MEDS: Famotidine 20 MG TABLET PO SCH (22:05)
[2020-07-09] MEDS: Pantoprazole 40 MG VIAL IVP SCH (05:19)
[2020-07-09] MEDS: *HR* Heparin 5,000 UNIT/ML VIAL SQ SCH (05:20)
[2020-07-09 05:25] LABS: Hematocrit 33.1 % (37.5-50.1); Hemoglobin 10.6 g/dL (12.9-16.9)
[2020-07-09] MEDS: Fluconazole 400 MG/200 ML 400 MG/200 ML BAG IVPB SCH (07:28)
[2020-07-09] MEDS: Insulin LISPRO 300 UNITS/3 ML VIAL SQ SCH ×2 (07:43→13:19)
[2020-07-09] MEDS: *HR* Labetalol 20 MG/4 ML SYRINGE IVP PRN (10:43)
[2020-07-09 12:18] VITALS: BP 190/85
[2020-07-09] MEDS ORDERED: amLODIPine 5 MG TABLET PO ONE ×2 (12:34→12:47)
== END 2020-07-09 14:23 | disposition home or self-care (01) | DRG 380 ==
LOC: 2NNU → SUATTDRO 21:05 → 3BNU 07-06 10:56
PROVIDERS: ADMIT Internal Medicine; ATTEND Family Medicine
PROC: ENDOEBX (2020-07-07 13:00)